=== PATIENT | female | born 1990 | race African-American/Black ===

== ENCOUNTER 2017-02-04 22:44 | Emergency (ER) | payer OTHER ==
[~2017-02-04] VITALS: Ht 165.1 cm; Wt 65.0 kg
[~2017-02-04 22:44] MED LIST: DIFL150T PO; METR-1 PO; NAPR1TAB34 PO
[2017-02-04 22:45] VITALS: BP 106/61; PULSE 56; RESP 16; TEMP 98.4; O2SAT 100
[2017-02-05 02:26] LABS: BLOOD, URINE NEG (NEG); COMMENT (UR) CULT NOT INDICATED; CULTURE IF INDICATED CULT NOT INDICATED; GLUCOSE,URINE NEG (NEG); HYALINE CAST, URINE 3 /lpf (RARE); KETONE, URINE NEG (NEG); MUCUS URINE MANY /lpf (OCC); NITRITE,URINE NEG (NEG); SQUAMOUS EPITHELIAL CELL URINE 1 /hpf (0-5); URINE COLOR YELLOW (YELLW/STRAW)
--- NOTE | 2017-02-05 03:20 | PD ---
HPI Chief Complaint: Abdominal Pain Time Seen by Provider: 01:44 Travel History International Travel<30 days: No Contact w/Intl Traveler<30days: No Traveled to known affect area: No History of Present Illness HPI Patient is a 26-year-old female comes in complaining of vaginal discharge and lower abdominal cramping for the past week. She says the last time she felt like this she had BV, so she knows that it is BV. She says this happens every time she has unprotected sex. She says her partner is not having any symptoms. She does not think she has come into contact with gonorrhea or chlamydia. She denies any dysuria. She denies any nausea or vomiting. Her last menstrual period was about a week ago. [facility] Past Medical History Diminished Hearing: No Immunizations Current: Yes Tetanus Vaccination: < 5 Years Influenza Vaccination: Yes ?: Not LMP: 01/30/17 : 2 Para: 2 Past Surgical History Abdominal Surgery: Yes () Section: Yes Social History Alcohol Use: No Tobacco Use: No Substance Use: No Allergies-Medications (Allergen,Severity, Reaction): Coded Allergies: No Known Allergies (Unverified , 02/05/17) Reported Meds & Prescriptions Reported Meds & Active Scripts Active No Active Prescriptions or Reported Medications Review of Systems Except as stated in HPI: all other systems reviewed are Neg General / Constitutional: No: Fever, Chills HENT: No: Headaches, Lightheadedness Cardiovascular: No: Chest Pain or Discomfort Respiratory: No: Shortness of Breath Gastrointestinal: Positive: Abdominal Pain, No: Nausea, Vomiting Genitourinary: Positive: Discharge, No: Dysuria Skin: No Rash, No Change in Pigmentation Neurologic: No: Weakness, Dizziness Physical Exam Narrative GENERAL: Awake and alert, in no acute distress. SKIN: Focused skin assessment warm/dry. HEAD: Atraumatic. Normocephalic. EYES: Pupils equal and round. No scleral icterus. ENT: Mucous membranes pink and moist. NECK: Trachea midline. No JVD. CARDIOVASCULAR: Regular rate and rhythm. No murmur appreciated. RESPIRATORY: No accessory muscle use. Clear to auscultation. Breath sounds equal bilaterally. GASTROINTESTINAL: Abdomen soft, non-tender, nondistended. : Exam performed in the presence of a female nurse. Small amount of white discharge. No cervical lesions. No CMT. MUSCULOSKELETAL: No obvious deformities. No clubbing. No cyanosis. No edema. NEUROLOGICAL: Awake and alert. No obvious cranial nerve deficits. Motor grossly within normal limits. Normal speech. Data Data Last Documented VS Vital Signs Date Time Temp Pulse Resp B/P Pulse Ox O2 Delivery O2 Flow Rate FiO2 02/05/17 01:30 18 02/04/17 22:45 98.4 56 106/61 100 Room Air Orders Urinalysis - C+S If Indicated (02/05/17 01:44) Ed Urine Pregnancytest Poc (02/05/17 01:44) Wet Prep Profile (02/05/17 01:44) Gc And Chlamydia Pcr (02/05/17 01:44) Labs Laboratory Tests Test 02/05/17 02/05/17 02:10 02:15 Urine Color YELLOW Urine Turbidity CLEAR Urine pH 6.0 Urine Specific [place] 1.033 Urine Protein TRACE mg/dL Urine Glucose (UA) NEG mg/dL Urine Ketones NEG mg/dL Urine Occult Blood NEG Urine Nitrite NEG Urine Bilirubin NEG Urine Urobilinogen 2.0 MG/DL Urine Leukocyte Esterase TRACE Urine RBC 2 /hpf Urine WBC 4 /hpf Urine Squamous Epithelial 1 /hpf Cells Urine Hyaline Casts 3 /lpf Urine Mucus MANY /lpf Microscopic Urinalysis Comment CULT NOT INDICATED Clue Cells (Wet Prep) NONE SEEN Vaginal Trichomonas (Wet Prep) NONE SEEN Vaginal Yeast (Wet Prep) NONE SEEN Chlamydia trachomatis DNA NOT DETECTED (PCR) Neisseria gonorrhoeae DNA NOT DETECTED (PCR) MDM Medical Decision Making Medical Screen Exam Complete: Yes Emergency Medical Condition: Yes Medical Record Reviewed: Yes Differential Diagnosis Bacterial vaginosis versus UTI versus gonorrhea/chlamydia Narrative Course Patient is a 26-year-old female who comes in complaining of lower abdominal pain and vaginal discharge. Exam shows a small amount of white discharge. Swab sent for wet prep shows no acute abnormalities. Swab sent for GC and chlamydia testing. Patient states she does not believe she is come into contact with this, she will not be treated at this time. She is told that if the tests come back positive, she will need to come in for treatment. She is advised to always use protection during intercourse. Advised follow-up with gynecology. Advised to return to the emergency department any time for any worsening symptoms. Patient stated several times that she would like the treatment for bacterial vaginosis. I explained to her that her wet prep did not show any signs of it nor did her exam. Explained that the antibiotics would be more detrimental to her at this time and that when she needed them to work to treat an infection, she would develop resistance to them. Diagnosis Primary Impression: Vaginal discharge Patient Instructions: General Instructions, Vaginal Discharge (ED) Additional Instructions: Follow-up with gynecology. Avoid intercourse for the next week to 2 weeks. Use protection during sexual intercourse. Return to the emergency department as needed for any worsening symptoms. Scripts No Active Prescriptions or Reported Meds Disposition: 01 DISCHARGE HOME Condition: Stable Chanda Thomson MD Feb 05, 2017 03:20
[2017-02-05 05:03] LABS: CHLAMYDIA PCR NOT DETECTED (NOT DETECT); NEISSERIA PCR NOT DETECTED (NOT DETECT)
== END 2017-02-05 03:40 | disposition home or self-care (01) ==
LOC: NEPE 22:44
DX: N89.8 Other specified noninflammatory disorders of vagina (principal)
CPT/HCPCS: 81001; 84703; 87210; 87491; 87591; 99283

== ENCOUNTER 2017-02-16 10:44 | Emergency (ER) | payer OTHER ==
[~2017-02-16] VITALS: Ht 154.9 cm; Wt 65.0 kg
[2017-02-16 10:46] VITALS: BP 108/54; PULSE 80; RESP 14; TEMP 98.6; O2SAT 100
--- NOTE | 2017-02-16 11:58 | PD ---
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 Patient was seen and evaluated here earlier this month and discharged home. She states that she has had BV in the past and this is very similar to that. She is in a monogamous sexual relationship with her for many years. Denies any fever or chills. Denies any urinary difficulty. She has no other symptoms to report at this time. [facility] Past Medical History Medical History: Denies Significant Hx Diminished Hearing: No Immunizations Current: Yes Influenza Vaccination: Yes ?: Not LMP: 02/13/17 : 2 Para: 2 Past Surgical History Abdominal Surgery: Yes () Section: Yes (x2) Social History Alcohol Use: Yes (rarely) Tobacco Use: No Substance Use: No Allergies-Medications (Allergen,Severity, Reaction): Coded Allergies: No Known Allergies (Unverified , 02/16/17) Reported Meds & Prescriptions Reported Meds & Active Scripts Active Flagyl (Metronidazole) 500 Mg Tab 500 Mg PO BID 7 Days Review of Systems Except as stated in HPI: all other systems reviewed are Neg Physical Exam Narrative GENERAL: Well-nourished female patient, in no acute distress SKIN: Focused skin assessment warm/dry. HEAD: Atraumatic. Normocephalic. EYES: Pupils equal and round. No scleral icterus. No injection or drainage. ENT: No nasal bleeding or discharge. Mucous membranes pink and moist. NECK: Trachea midline. No JVD. CARDIOVASCULAR: Regular rate and rhythm. No murmur appreciated. RESPIRATORY: No accessory muscle use. Clear to auscultation. Breath sounds equal bilaterally. GASTROINTESTINAL: Abdomen soft, distended. Slight suprapubic tenderness to palpation. hepatic and splenic margins not palpable. GENITOURINARY: Normal external genitalia without lesions or erythema. Vaginal vault without blood area there is a watery white discharge.. Cervical os was closed without drainage. No cervical motion tenderness. Uterus nontender and nonenlarged. Bilateral adnexa nontender without masses. MUSCULOSKELETAL: No obvious deformities. No clubbing. No cyanosis. No edema. NEUROLOGICAL: Awake and alert. No obvious cranial nerve deficits. Motor grossly within normal limits. Normal speech. PSYCHIATRIC: Appropriate mood and affect; insight and judgment normal. Data Data Last Documented VS Vital Signs Date Time Temp Pulse Resp B/P Pulse Ox O2 Delivery O2 Flow Rate FiO2 02/16/17 10:46 98.6 80 14 108/54 100 Orders Urinalysis - C+S If Indicated (02/16/17 11:50) Ed Urine Pregnancytest Poc (02/16/17 11:50) Wet Prep Profile (02/16/17 11:51) Ceftriaxone Inj (Rocephin Inj) (02/16/17 12:00) Lidocaine 1% Inj (50 Ml) (Xylocaine 1% I (02/16/17 12:00) Metronidazole (Flagyl) (02/16/17 12:00) Azithromycin Powd Pack (Zithromax Powd P (02/16/17 12:00) Gc And Chlamydia Pcr (02/16/17 11:58) Labs Laboratory Tests Test 02/16/17 12:00 Urine Color YELLOW Urine Turbidity HAZY Urine pH 5.5 Urine Specific [place] 1.030 Urine Protein TRACE mg/dL Urine Glucose (UA) NEG mg/dL Urine Ketones NEG mg/dL Urine Occult Blood NEG Urine Nitrite NEG Urine Bilirubin NEG Urine Urobilinogen LESS THAN 2.0 MG/DL Urine Leukocyte Esterase NEG Urine RBC 1 /hpf Urine WBC 2 /hpf Urine Squamous Epithelial 8 /hpf Cells Urine Bacteria RARE /hpf Urine Hyaline Casts 1 /lpf Urine Mucus MOD /lpf Microscopic Urinalysis Comment CULT NOT INDICATED Clue Cells (Wet Prep) PRESENT Vaginal Trichomonas (Wet Prep) NONE SEEN Vaginal Yeast (Wet Prep) NONE SEEN Chlamydia trachomatis DNA NOT DETECTED (PCR) Neisseria gonorrhoeae DNA NOT DETECTED (PCR) MDM Medical Decision Making Medical Screen Exam Complete: Yes Emergency Medical Condition: Yes Medical Record Reviewed: Yes Differential Diagnosis BV versus STD versus PID versus UTI Narrative Course 26-year-old female presents to emergency department for evaluation of persistent vaginal discharge. Laboratory Tests Test 02/16/17 12:00 Urine Color YELLOW Urine Turbidity HAZY Urine pH 5.5 Urine Specific [place] 1.030 Urine Protein TRACE mg/dL Urine Glucose (UA) NEG mg/dL Urine Ketones NEG mg/dL Urine Occult Blood NEG Urine Nitrite NEG Urine Bilirubin NEG Urine Urobilinogen LESS THAN 2.0 MG/DL Urine Leukocyte Esterase NEG Urine RBC 1 /hpf Urine WBC 2 /hpf Urine Squamous Epithelial 8 /hpf Cells Urine Bacteria RARE /hpf Urine Hyaline Casts 1 /lpf Urine Mucus MOD /lpf Microscopic Urinalysis Comment CULT NOT INDICATED Clue Cells (Wet Prep) PRESENT Vaginal Trichomonas (Wet Prep) NONE SEEN Vaginal Yeast (Wet Prep) NONE SEEN Chlamydia trachomatis DNA NOT DETECTED (PCR) Neisseria gonorrhoeae DNA NOT DETECTED (PCR) Patient will be treated with Flagyl. She is encouraged to seek gynecology evaluation. She agrees to return immediately with any acute worsening symptoms. Diagnosis Primary Impression: Bacterial vaginosis Referrals: [facility] Primary Care Physician Patient Instructions: Bacterial Vaginosis (ED), General Instructions Additional Instructions: Follow-up with an BREAST SURGEON Return immediately to the emergency department with any acute worsening symptoms Med/Other Pt SpecificInfo: Prescription(s) given Scripts Metronidazole (Flagyl)500 Mg [id number] Mg PO BID 7 Days Ref 0 Prov:Elise Garcia 02/16/17 Disposition: 01 DISCHARGE HOME Condition: Stable Elise Garcia Feb 16, 2017 11:58
[2017-02-16] MEDS ORDERED: AZITHROMYCIN PWD FOR SUSP 1 GM PACKET PO ONE (12:00)
[2017-02-16] MEDS ORDERED: LIDOCAINE HCL 1% 50 ML VIAL XX ONE (12:00)
[2017-02-16] MEDS ORDERED: cefTRIAXone 250 MG VIAL IM ONE (12:00)
[2017-02-16] MEDS ORDERED: metroNIDAZOLE 500 MG TAB PO ONE (12:00)
[2017-02-16 12:27] LABS: BACTERIA, URINE RARE /hpf; BLOOD, URINE NEG (NEG); COMMENT (UR) CULT NOT INDICATED; CULTURE IF INDICATED CULT NOT INDICATED; GLUCOSE,URINE NEG (NEG); HYALINE CAST, URINE 1 /lpf (RARE); KETONE, URINE NEG (NEG); MUCUS URINE MOD /lpf (OCC); NITRITE,URINE NEG (NEG); PH, URINE 5.5 (5.0-8.5); SQUAMOUS EPITHELIAL CELL URINE 8 /hpf (0-5); URINE COLOR YELLOW (YELLW/STRAW)
[2017-02-16] MEDS ORDERED: METR-1 PO (12:32)
[2017-02-16 14:08] LABS: CHLAMYDIA PCR NOT DETECTED (NOT DETECT); NEISSERIA PCR NOT DETECTED (NOT DETECT)
== END 2017-02-16 12:48 | disposition home or self-care (01) ==
LOC: NEPD 10:44
DX: N76.0 Acute vaginitis (principal); B96.89 Other specified bacterial agents as the cause of diseases classified elsewhere
CPT/HCPCS: 81001; 84703; 87210; 87491; 87591; 96372; 99284; J0696

== ENCOUNTER 2017-03-24 14:53 | Emergency (ER) | payer OTHER ==
[~2017-03-24] VITALS: Ht 154.9 cm; Wt 65.0 kg
[~2017-03-24 14:53] MED LIST changes: -DIFL150T PO; -NAPR1TAB34 PO
[2017-03-24 14:55] VITALS: BP 111/53; PULSE 66; RESP 12; TEMP 98.6; O2SAT 100
--- NOTE | 2017-03-24 15:08 | PD ---
Physical Exam Date Seen by Provider: Mar 24, 2017 Time Seen by Provider: 15:06 Narrative 26 yo female that presents to the ED for evaluation of vaginal discharge. Diagnosed with BV recently at this hospital. Never got the flagyl filled as "I lost it". Comes here to see if she can get a prescription for it. Same symptoms with no changes. Vitals are stable in triage. Awaiting Bed placement. Data Data Last Documented VS Vital Signs Date Time Temp Pulse Resp B/P (MAP) Pulse Ox O2 Delivery O2 Flow Rate FiO2 03/24/17 14:55 98.6 66 12 111/53 (72) 100 MDM Medical Record Reviewed: Yes Supervised Visit with ABDIRIZAK: No Myron Cagle Mar 24, 2017 15:08
[2017-03-24] MEDS ORDERED: METR-1 PO (15:26)
--- NOTE | 2017-03-24 15:28 | PD ---
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 She states that she took it to the pharmacist and apparently the prescription was lost. She tried to contact an OB /CUPOLA PATCHER to be seen and she could not find anybody to take her insurance. She was advised to come back to the emergency department and asked for a refill. Her symptoms have not changed. She says she still having vaginal discharge and odor. She denies dysuria, frequency. Denies fever, vomiting. Says she still having some abdominal cramping but it is unchanged and consistent with her past abdominal cramping. She does not want to have another pelvic exam done today. She reports frequent recurrences of bacterial vaginosis. Symptoms are mild in severity. She has no other medical complaints at this time. No known allergies. No other modifying factors or associated signs and symptoms. PFSH Past Medical History Diminished Hearing: No Immunizations Current: Yes ?: Not LMP: 02/10 : 2 Para: 2 Past Surgical History Abdominal Surgery: Yes () Section: Yes (x2) Social History Alcohol Use: Yes (rarely) Tobacco Use: No Substance Use: No Allergies-Medications (Allergen,Severity, Reaction): Coded Allergies: No Known Allergies (Unverified , 02/16/17) Reported Meds & Prescriptions Reported Meds & Active Scripts Active Flagyl (Metronidazole) 500 Mg Tab 500 Mg PO BID 7 Days Review of Systems Except as stated in HPI: all other systems reviewed are Neg Physical Exam Narrative GENERAL: Well-nourished, well-developed female patient, in no acute distress; afebrile, nontoxic-appearing SKIN: Warm and dry. HEAD: Atraumatic. Normocephalic. EYES: Pupils equal and round at 5 mm with brisk reaction. No scleral icterus. No injection or drainage. ENT: Mucosa pink and moist. Airway patent. NECK: Trachea midline. CARDIOVASCULAR: Regular rate. RESPIRATORY: No accessory muscle use. GASTROINTESTINAL: Abdomen soft, non-tender, nondistended. Hepatic and splenic margins not palpable. Bowel sounds are active 4 quadrants. Better nontender nondistended. MUSCULOSKELETAL: No obvious deformities. No clubbing. No cyanosis. No edema. NEUROLOGICAL: Awake and alert. Oriented 3. No obvious cranial nerve deficits. Motor grossly within normal limits. Normal speech. PSYCHIATRIC: Appropriate mood and affect; insight and judgment normal. Data Data Last Documented VS Vital Signs Date Time Temp Pulse Resp B/P (MAP) Pulse Ox O2 Delivery O2 Flow Rate FiO2 03/24/17 14:55 98.6 66 12 111/53 (72) 100 MDM Medical Decision Making Medical Screen Exam Complete: Yes Emergency Medical Condition: Yes Medical Record Reviewed: Yes Differential Diagnosis Medication refill, bacterial vaginosis, medical clearance Narrative Course 26-year-old female requesting medication refill on Flagyl for bacterial vaginosis. I reviewed her medical record and she was seen on February 16 and was diagnosed with bacterial vaginosis. She was negative for chlamydia and gonorrhea at that visit. She said the pharmacy lost her prescription and her Flagyl was not filled, she has not taken, and her symptoms have persisted. Flagyl prescribed for home. Start patient to follow up with CUPOLA PATCHER. Instructed patient to follow up with primary care provider. Patient verbalizes understanding and agreement with treatment plan. Patient is medically cleared and stable for discharge. Discussed reasons to return to the emergency department. Patient agrees with treatment plan. The patients vital signs are stable and the patient is stable for outpatient follow-up and treatment. Patient discharged home, stable and in no acute distress. Diagnosis Primary Impression: Medication refill Additional Impression: Bacterial vaginosis Referrals: [facility] Senior Laboratory Technician [facility] Primary Care Physician [facility] Dept. Patient Instructions: Bacterial Vaginosis (ED), General Instructions, Medicine Refill (ED) Departure Forms: Tests/Procedures, Work Release Enter return to work date: Mar 25, 2017 Additional Instructions: Flagyl as prescribed Avoid wearing tight pants Maintain good personal hygiene Follow-up with gynecology Follow-up with primary care provider Return to the emergency department immediately with worsening of symptoms Med/Other Pt SpecificInfo: Prescription(s) given Scripts Metronidazole (Flagyl) 500 Mg Tab 500 MG PO BID for Infection for 7 Days, TAB 0 Refills Prov: Leigha Sanchez 03/24/17 Disposition: DISCHARGE HOME Condition: Stable Leigha Sanchez Mar 24, 2017 15:28
== END 2017-03-24 15:52 | disposition home or self-care (01) ==
LOC: NEPK 14:53
DX: N76.0 Acute vaginitis (principal)
CPT/HCPCS: 99281

== ENCOUNTER 2017-07-05 07:25 | Emergency (ER) | payer OTHER ==
[2017-07-05 07:28] VITALS: BP 106/53; PULSE 72; RESP 18; TEMP 97.7; O2SAT 97
[2017-07-05] MEDS ORDERED: IBUPROFEN 800 MG TAB PO ONE (08:00)
--- NOTE | 2017-07-05 08:05 | PD ---
HPI Chief Complaint: ENT Complaint Time Seen by Provider: 07:51 Travel History International Travel<30 days: No Contact w/Intl Traveler<30days: No Traveled to known affect area: No History of Present Illness HPI 27-year-old female presents to the emergency Department with complaint of sore throat and concern of bumps to the back of her tongue that she noticed yesterday morning while brushing her teeth. States she thinks she has throat cancer or an STD. Sore throat has been since yesterday also. Denies fever, cough, nasal congestion, ear pain. Denies unusual drooling, difficulty swallowing, lump in throat. Reports headache and feeling nauseated. Denies vomiting or abdominal pain. Has not taken any medication or tried any treatments to alleviate her symptoms. Symptoms are mild in severity. No known aggravating or relieving factors. No known allergies. Has no medical complaints. No other modifying factors or associated signs and symptoms. PFSH Past Medical History Diminished Hearing: No Immunizations Current: Yes ?: Not : 2 Para: 2 Past Surgical History Abdominal Surgery: Yes () Section: Yes (x2) Social History Alcohol Use: Yes (rarely) Tobacco Use: No Substance Use: No Allergies-Medications (Allergen,Severity, Reaction): Coded Allergies: No Known Allergies (Unverified Adverse Reaction, Unknown, 07/05/17) Reported Meds & Prescriptions Reported Meds & Active Scripts Active Magic Mouthwash Pediatric/Adult Liq (Lidocaine/Diphenhydr/Alum/Mg/Simeth) 60 Ml Susp 5 Ml SWISH-SWAL Q3HR PRN Each 5mL contains: Diphenydramine 4.5mg, Viscous Lidocaine 2% 10mg, Maalox Advanced Regular Strength 2.7ml Review of Systems Except as stated in HPI: all other systems reviewed are Neg Physical Exam Narrative GENERAL: Well-nourished, well-developed black female patient, in no acute distress; afebrile, nontoxic-appearing SKIN: Warm and dry. No rash. HEAD: Atraumatic. Normocephalic. EYES: Pupils equal and round. No scleral icterus. No injection or drainage. ENT: Mucosa pink and moist. Oropharynx without erythema, edema, exudate. Small red bumps noted to the back of the tongue consistent with normal papillae ; tongue is without edema, erythema, drainage. No uvular edema. No uvular, palatal, or tonsillar deviation. Airway patent. EARS: Bilateral pinnae and external canals appear within normal limits. Bilateral tympanic membranes without erythema, dullness or perforation. NECK: Trachea midline. No lymphadenopathy. CARDIOVASCULAR: Regular rate. RESPIRATORY: No accessory muscle use. GASTROINTESTINAL: Obese. MUSCULOSKELETAL: No obvious deformities. No clubbing. No cyanosis. No edema. NEUROLOGICAL: Awake and alert. Oriented 3. No obvious cranial nerve deficits. Motor grossly within normal limits. Normal speech. Moves all extremities. 5/5 strength to all extremities. PSYCHIATRIC: Appropriate mood and affect; insight and judgment normal. Data Data Last Documented VS Vital Signs Date Time Temp Pulse Resp B/P (MAP) Pulse Ox O2 Delivery O2 Flow Rate FiO2 07/05/17 07:28 97.7 72 18 106/53 (70) 97 Orders Orders Group A Rapid Strep Screen (07/05/17 07:57) Ibuprofen (Motrin) (07/05/17 08:00) Strep Culture (Group A) (07/05/17 08:05) Ed Discharge Order (07/05/17 08:49) MDM Medical Decision Making Medical Screen Exam Complete: Yes Emergency Medical Condition: Yes Medical Record Reviewed: Yes Differential Diagnosis Normal exam, normal papillae of tongue, sore throat, strep pharyngitis, less likely peritonsillar abscess Narrative Course 27-year-old female with sore throat since yesterday. She is afebrile and nontoxic-appearing. Denies Fever, vomiting. Ibuprofen rapid strep ordered. 0849: Rapid strep negative. Discussed viral illness and symptom management. Magic mouthwash prescribed for home. Instructed patient to follow up with primary care provider. Patient verbalizes understanding and agreement with treatment plan. Patient is medically cleared and stable for discharge. Discussed reasons to return to the emergency department. Patient agrees with treatment plan. The patients vital signs are stable and the patient is stable for outpatient follow-up and treatment. Patient discharged home, stable and in no acute distress. Diagnosis Primary Impression: Sore throat Referrals: [facility] Primary Care Physician Patient Instructions: General Instructions, Pharyngitis (ED) Departure Forms: Tests/Procedures, Work Release Enter return to work date: Jul 05, 2017 Additional Instructions: Ibuprofen or Tylenol as instructed and as needed for pain Get plenty of sleep/rest Rest your voice Drink plenty of fluids to prevent dehydration Use warm saltwater gargles to soothe throat pain Use an air humidifier/turn off ceiling fans Use throat lozenges as needed for sore throat Follow-up with your primary care provider Return immediately to the emergency department with worsening of symptoms Med/Other Pt SpecificInfo: Prescription(s) given Scripts Lclukuhoudewblt-Qwyljdeex-Bgo-Alum-Simeth Liq (Magic Mouthwash Pediatric/Adult Liq) 60 Ml Susp 5 ML SWISH-SWAL Q3HR Y for SORE THROAT, #60 ML 0 Refills Each 5mL contains: Diphenydramine 4.5mg, Viscous Lidocaine 2% 10mg, Maalox Advanced Regular Strength 2.7ml Prov: Leigha Sanchez 07/05/17 Disposition: 01 DISCHARGE HOME Condition: Stable Leigha Sanchez Jul 05, 2017 08:05
[2017-07-05] MEDS ORDERED: MAGICPED SWISH-SWAL (08:48)
== END 2017-07-05 09:11 | disposition home or self-care (01) ==
LOC: NEPD 07:25
DX: J02.9 Acute pharyngitis, unspecified (principal); R51 Headache; R11.0 Nausea
CPT/HCPCS: 87081; 87880; 99284